=== PATIENT | female | born 1990 ===

== ENCOUNTER 2023-10-18 08:19 | Day surgery (SDC) | payer BC, OTHER ==
[~2023-10-18] VITALS: Ht 160 cm; Wt 69.2 kg
[2023-10-18] VITALS (11 sets, daily range): BP systolic 111–137; BP diastolic 64–93
[2023-10-18] MEDS ORDERED: FentaNYL Citrate 50 MCG/ML 2 ML Injection ONE (08:46)
[2023-10-18] MEDS ORDERED: propofoL 20 ML IV ONE (08:46)
[2023-10-18] MEDS ORDERED: TRAZ50 PO (08:52)
[2023-10-18] MEDS ORDERED: ZYRTEC10 M2 PO (08:53)
[2023-10-18] MEDS ORDERED: IBUP400 PO (08:53)
[2023-10-18] MEDS ORDERED: Midazolam HCl 1MG / ML 2ML Vial IV ONE (08:55)
[2023-10-18] MEDS ORDERED: FentaNYL Citrate 50 MCG/ML 2 ML Injection IV PRN ×3 (08:55)
[2023-10-18] MEDS ORDERED: Ondansetron HCl 2 MG / ML 2ML Vial IV PRN (08:55)
[2023-10-18] MEDS ORDERED: Lidocaine HCl 1% 5 ML SYR INJ ONE (08:55)
[2023-10-18] MEDS ORDERED: Lactated Ringer's 1,000 ML IV ONE (08:56)
[2023-10-18] MEDS ORDERED: CeFAZolin Sodium 2,000 MG in NS 100 ML IV SCH (09:10)
[2023-10-18] MEDS ORDERED: Lactated Ringer's 1,000 ML IV SCH (09:25)
[2023-10-18] MEDS ORDERED: Dexamethasone Sod Phos 10 MG/ML 1ML VIAL ONE (10:18)
[2023-10-18] MEDS ORDERED: Ondansetron HCl 2 MG / ML 2ML Vial ONE (10:18)
[2023-10-18] MEDS ORDERED: Ibuprofen 400 MG Tab PO ONE (11:35)
--- NOTE | 2023-10-18 12:17 | NUR ---
DISCHARGE NOTE PT A&OX4, BREATHING RA, TOLERATING PO FLUIDS, NO COMPLAINTS. GIVEN PO PAIN MEDICATION PER MD ORDERS FOR SLIGHT AVILA AND CRAMPING. AT BEDSIDE. PT HAS MILD SPOTTING TO ROCÍO PAD UPON STNADING. PT ABLE TO DRESS INDEPENDENTLY. Patient up to Ambulate independently. Gait steady. Discharge instructions reviewed with patient. Patient verbalizes understanding. Copy given to patient to take home. Discharged via wheelchair to private car for ride home.
== END 2023-10-18 12:10 | disposition home or self-care (01) ==
LOC: ORD 08:19 → ORSCMMR 08:19 → ORD 09:30
PROVIDERS: Obstetrics & Gynecology
PROC: 0UDB7ZX Extraction of Endometrium, Via Natural or Artificial Opening, Diagnostic (ICD-10-PCS; principal; 2023-10-18 09:30)
DX: O02.1 Missed abortion (principal)
CPT/HCPCS: 88305; A9270; J0690; J1100; J2250; J2405; J2704; J3010; J7120

== ENCOUNTER → 2024-09-27 | Outpatient (CLI) | payer BC, OTHER ==
[~2024-09-27] MED LIST: IBUP400 PO; IBUP800 PO; LABE200 PO; OXAYDO5 M1 PO; TRAZ50 PO; ZYRTEC10 M2 PO
== END ==
LOC: LAB SHORT 17:05 → LAB 17:05
DX: O09.93 Supervision of high risk pregnancy, unspecified, third trimester (principal); Z3A.00 Weeks of gestation of pregnancy not specified
CPT/HCPCS: 87081; 87150

== ENCOUNTER → 2025-02-26 | Outpatient (CLI) | payer BC, OTHER | END | disposition home or self-care (01) | LOC: LAB SHORT 11:00 → LAB 11:00 | PROVIDERS: Obstetrics & Gynecology | DX: Z01.419 Encounter for gynecological examination (general) (routine) without abnormal findings (principal) | CPT/HCPCS: 87624; G0145 ==